=== PATIENT | female | born 1995 | race Caucasian/White ===

== ENCOUNTER 2016-07-03 09:26 | Emergency (ER) ==
[2016-07-03 09:34] VITALS: BP 120/80; TEMP 98; BMI 47.4
--- NOTE | 2016-07-03 10:07 | ED.PDOC ---
General ED Provider: Dr. TRINH PHAM JR Chief Complaint: Abdominal Pain Stated Complaint: LEFT LOWER ABDOMINAL PAIN SINCE SHE WOKE UP AND HAS ALSO BEEN HAVING DIARRHEA. HAD A POSITIVE TEST LAST WEEK AT [facility] BUT IS UNSURE OF HOW FAR ALONG SHE IS DUE TO IRREGULAR PERIODS[ End ]spotting in March Time Seen by Physician: 09:30 Mode of Arrival: Walk-In Information Source: Patient Exam Limitations: No limitations Nursing and Triage Documentation Reviewed and Agree: No Review of Systems - Review Of Systems Constitutional: Reports: No symptoms Eyes: Reports: No symptoms Ears, Nose, Mouth, Throat: Reports: No symptoms Respiratory: Reports: No symptoms Cardiac: Reports: No symptoms GI: Reports: Abdominal pain, Diarrhea, Nausea : Reports: No symptoms Musculoskeletal: Reports: No symptoms Skin: Reports: No symptoms Neurological: Reports: No symptoms Endocrine: Reports: No symptoms Hematologic/Lymphatic: Reports: No symptoms All Other Systems: Other Past Medical History - Past Medical History Previously Healthy: Yes Endocrine: Reports: None Cardiovascular: Reports: None Respiratory: Reports: None Hematological: Reports: None Gastrointestinal: Reports: None Genitourinary: Reports: None Neuro/Psych: Reports: None Musculoskeletal: Reports: None Cancer: Reports: None Last Menstrual Period: 03/28/16 - Surgical History General Surgical History: Reports: None, Unknown - Family History Family History: Reports: Unknown - Social History Smoking Status: Current some day smoker Hx Substance Use: No Alcohol Screening: None - Immunizations Tetanus Shot up to Date: Yes Physical Exam - Physical Exam Appearance: Well-appearing, Obese Pain Distress: Moderate Eyes: CELI, EOMI, Conjunctiva clear ENT: Ears normal, Nose normal, Oropharynx normal Neck: Supple Respiratory: Airway patent, Breath sounds clear, Breath sounds equal, Respirations nonlabored Cardiovascular: RRR, Pulses normal, No rub, No murmur GI/: Soft, Tender (LLQ and fundus not reproducible) Musculoskeletal: Normal strength, ROM intact, No edema, No calf tenderness Skin: Warm, Dry, Normal color Neurological: Sensation intact, Motor intact, Reflexes intact, Cranial nerves intact, Alert, Oriented Psychiatric: Affect appropriate, Mood appropriate Interpretation - Radiology Interpretation Radiology Interpretation By: Radiologist Radiology Results: Negative Exam Interpreted: Other (u/s [id number] 10/14/16) Critical Care Note - Critical Care Note Total Time (mins): 0 Course - Course Hematology/Chemistry: 07/03/16 10:10 07/03/16 10:10 Orders, Labs, Meds: Lab Review 07/03/16 07/03/16 10:10 10:19 WBC 16.16 H RBC 3.64 L Hgb 11.3 L Hct 31.8 L MCV 87.4 MCH 31.0 MCHC 35.5 H RDW Coeff of [place] 13.8 Plt Count 245 Immature Gran % (Auto) 0.6 Neut % (Auto) 80.7 Lymph % (Auto) 13.8 Ray % (Auto) 4.1 Eos % (Auto) 0.5 Baso % (Auto) 0.3 Immature Gran # (Auto) 0.1 Neut # 13.1 H Lymph # 2.2 Ray # 0.7 Eos # 0.1 Baso # 0.1 Sodium 135 L Potassium 3.6 Chloride 105 Carbon Dioxide 23 Anion Gap 10.6 BUN 7 Creatinine 0.57 L Estimated GFR (MDRD) 133.00 BUN/Creatinine Ratio 12.28 Glucose 87 Calcium 8.8 Total Bilirubin 0.43 AST 18 ALT 21 Alkaline Phosphatase 93 Total Protein 6.5 Albumin 2.7 L Globulin 3.8 Albumin/Globulin Ratio 0.71 Amylase 76 Lipase 10 Urine Color Yellow Urine Clarity Hazy Urine pH 6.0 Ur Specific [place] 1.025 Urine Protein Trace Urine Glucose (UA) Negative Urine Ketones Trace Urine Blood 1+ Urine Nitrite Negative Urine Bilirubin Negative Urine Urobilinogen 1.0 Ur Leukocyte Esterase Negative Urine Microscopic RBC 2-5 Urine Microscopic WBC 2-5 Ur Squamous Epith Cells 2-5 Amorphous Sediment Trace Urine Bacteria 1+ Urine Mucus Trace Orders Category Date Time Status AMYLASE Stat LAB 07/03/16 10:10 Completed CBC W/ AUTO DIFF Stat LAB 07/03/16 10:10 Completed COMPREHENSIVE METABOLIC PANEL Stat LAB 07/03/16 10:10 Completed LIPASE Stat LAB 07/03/16 10:10 Completed URINALYSIS C & S IF INDICATED Stat LAB 07/03/16 10:19 Completed URINE CULTURE Stat LAB 07/03/16 10:46 Received ULTRASOUND OB/TA LIMITED [U/S OB/TA LIMITED] Stat RADS 07/03/16 10:02 Completed Vital Signs: Temp Pulse Resp BP Pulse Ox 07/03/16 09:26 98 F 93 H 20 120/80 96 Departure - Departure Time of Disposition: 12:46 Disposition: HOME SELF-CARE Discharge Problem: Abdominal pain, Gastroenteritis, 25 weeks gestation of Instructions: (ED), Gastroenteritis (ED) Condition: Good Pt referred to PMD for follow-up: Yes Additional Instructions: DRAKE 10/14/2016 follow up with OBGYN may use Maalox for symptoms increase fluids to replace fluid losses avoid carbonated beverages recommend avoid tobacco smoke return if worsening pain if pain on urination if unable to keep fluids down if voiding less than 6 times per 24 hours Prescriptions: Pnv95/Ferrous Fumarate/FA [ Caplet] 1 each PO DAILY #100 tablet Allergies/Adverse Reactions: Allergies loratadine [From Claritin] Adverse Reaction (Verified 07/03/16 09:36) Home Medications: Ambulatory Orders Pnv95/Ferrous Fumarate/FA [ Caplet] 1 each PO DAILY #100 tablet
[2016-07-03 10:20] LABS: BASOPHILS # (AUTO) 0.1 K/uL (0-0.2); BASOPHILS % (AUTO) 0.3 % (0.0-3.0); EOSINOPHILS # (AUTO) 0.1 K/ul (0.0-0.7); PLATELET COUNT 245 10^3/uL (140-440)
[2016-07-03 10:44] LABS: BILIRUBIN,URINE NEGATIVE (NEGATIVE); KETONES,URINE TRACE (NEGATIVE); NITRITE,URINE NEGATIVE (NEGATIVE); PROTEIN,URINE TRACE (NEGATIVE); URINE, BLOOD 1+ (NEGATIVE)
[2016-07-03 10:45] LABS: ADD URINE MICROSCOPIC YES; BACTERIA,URINE 1+ (NOT PRESENT); LEUKOCYTE ESTERASE ,URINE NEGATIVE (NEGATIVE)
[2016-07-03 10:47] LABS: ALBUMIN 2.7 g/dL (3.4-5.0); ALBUMIN/GLOBULIN RATIO 0.71; ANION GAP 10.6; BILIRUBIN,TOTAL 0.43 mg/dL (0.00-1.20); BUN/CREATININE RATIO 12.28; CALCIUM 8.8 mg/dL (8.2-10.2); CREATININE 0.57 mg/dL (0.60-1.30); POTASSIUM 3.6 mmol/L (3.5-5.10); TOTAL PROTEIN 6.5 g/dL (6.4-8.2)
[2016-07-03 10:50] LABS: EOSINOPHILS % (AUTO) 0.5 % (0.0-7.0); HEMATOCRIT 31.8 % (37.0-47.0); HEMOGLOBIN 11.3 g/dl (12.0-16.0); IMMATURE GRANULOCYTE % (AUTO) 0.6 % (0.0-5.0); LYMPHOCYTES # (AUTO) 2.2 K/uL (0.60-3.4); LYMPHOCYTES % (AUTO) 13.8 (10.0-50.0); MEAN CORPUSCULAR HGB CONC 35.5 (31.8-35.4); MEAN CORPUSCULAR VOLUME 87.4 fl (81.0-99.0); MONOCYTES # (AUTO) 0.7 K/uL (0.4-2.0); MONOCYTES % (AUTO) 4.1 (0-10); NEUTROPHILS # (AUTO) 13.1 K/ul (2.0-6.9); NEUTROPHILS % (AUTO) 80.7; RED BLOOD COUNT 3.64 10^6/ul (4.20-5.40); WHITE BLOOD COUNT 16.16 K/ul (4.6-10.2)
--- NOTE | 2016-07-03 11:00 | US ---
EXAM: Obstetric ultrasound limited HISTORY: Left lower quadrant pain. COMPARISON: None. FINDINGS: A single intrauterine gestation is identified cephalic presentation. Heart rate 156 beat s per minute. Amniotic fluid index 18.7. The placenta is posterior without previa. Estimate gestational age 25 weeks 2 days with estimated date of delivery 10/14/2016. IMPRESSION: Single viable intrauterine gestation as described above.
== END 2016-07-03 13:14 | disposition home or self-care (01) ==
LOC: ED 09:26
DX: K52.9 Noninfective gastroenteritis and colitis, unspecified (principal); R10.32 Left lower quadrant pain; Z33.1 Pregnant state, incidental; F17.210 Nicotine dependence, cigarettes, uncomplicated
CPT/HCPCS: 36415; 80053; 81001; 82150; 83690; 85025; 87086; 99283

== ENCOUNTER 2016-08-17 07:29 | Outpatient (CLI) ==
[2016-08-17 08:49] LABS: GTT FASTING URINE NEGATIVE (NEGATIVE)
[2016-08-17 09:33] LABS: GLUCOSE,FASTING 84 mg/dL (70-121)
[2016-08-17 09:34] LABS: GLUCOSE 30 MINUTE 143 mg/dL (70-121); GLUCOSE 30 MINUTE URINE NEGATIVE (NEGATIVE)
[2016-08-17 10:11] LABS: GLUCOSE 2 HR URINE NEGATIVE (NEGATIVE)
[2016-08-17 11:11] LABS: GLUCOSE 3 HOUR URINE NEGATIVE (NEGATIVE)
== END 2016-08-17 07:30 | disposition home or self-care (01) ==
LOC: LAB 07:29
PROVIDERS: ATTEND Obstetrics & Gynecology
DX: O99.810 Abnormal glucose complicating pregnancy (principal)
CPT/HCPCS: 36415; 82951

== ENCOUNTER 2017-04-16 23:40 | Emergency (ER) ==
[2017-04-16 23:42] VITALS: BMI 45.8
[2017-04-16] MEDS ORDERED: PROTONIX IV IVP STA (23:52)
[2017-04-16] MEDS ORDERED: SODIUM CHLORIDE 1,000 ML IV STA (23:52)
[2017-04-16] MEDS ORDERED: DILAUDID 1 MG/ML SYRINGE IVP PRN (23:53)
[2017-04-16] MEDS ORDERED: ZOFRAN 4 MG/2 ML IVP STA (23:54)
[2017-04-17] MEDS ORDERED: DILAUDID 1 MG/ML SYRINGE IVP STA (00:06)
[2017-04-17 00:12] LABS: BASOPHILS # (AUTO) 0.1 K/uL (0-0.2); BASOPHILS % (AUTO) 0.4 % (0.0-3.0); EOSINOPHILS # (AUTO) 0.2 K/ul (0.0-0.7); EOSINOPHILS % (AUTO) 1.1 % (0.0-7.0); HEMATOCRIT 37.6 % (37.0-47.0); HEMOGLOBIN 12.4 g/dl (12.0-16.0); IMMATURE GRANULOCYTE % (AUTO) 0.6 % (0.0-5.0); LYMPHOCYTES # (AUTO) 5.6 K/uL (0.60-3.4); LYMPHOCYTES % (AUTO) 31.4 (10.0-50.0); MEAN CORPUSCULAR HEMOGLOBIN 26.6 pg (27.0-31.0); MEAN CORPUSCULAR VOLUME 80.5 fl (81.0-99.0); MONOCYTES # (AUTO) 0.8 K/uL (0.4-2.0); MONOCYTES % (AUTO) 4.3 (0-10); NEUTROPHILS % (AUTO) 62.2; PLATELET COUNT 295 10^3/uL (140-440); RED BLOOD COUNT 4.67 10^6/ul (4.20-5.40); WHITE BLOOD COUNT 17.72 K/ul (4.6-10.2)
[2017-04-17 00:28] LABS: SERUM PREGNANCY INTERNAL QC INTERNAL QC VALID
[2017-04-17 00:32] LABS: ALBUMIN 3.3 g/dL (3.4-5.0); ALBUMIN/GLOBULIN RATIO 0.94; ANION GAP 13.2; BILIRUBIN,TOTAL 0.25 mg/dL (0.00-1.20); BUN/CREATININE RATIO 19.73; CREATININE 0.76 mg/dL (0.60-1.30); POTASSIUM 3.2 mmol/L (3.5-5.10); TOTAL PROTEIN 6.8 g/dL (6.4-8.2)
--- NOTE | 2017-04-17 01:03 | CT ---
EXAM: CT of the abdomen and pelvis without contrast. HISTORY: Upper abdominal pain. PROCEDURE: Contiguous axial CT images of the abdomen and pelvis without contrast with coronal and sa gittal reformats. FINDINGS: There is minimal bibasilar dependent atelectasis. The liver, gallbladder, pancreas, spleen , adrenal glands and kidneys are normal in appearance. The abdominal aorta is normal in appearance. T he visualized loops of bowel and appendix are normal in appearance. No free fluid or free air in the abdomen or pelvis. The bladder is minimally filled with no abnormality identified. The uterus is unr emarkable. The bones and soft tissues are unremarkable. Impression: Negative CT of the abdomen and pelvis. Bibasilar dependent atelectasis.
[2017-04-17 01:12] VITALS: BP 134/82; TEMP 97.9
[2017-04-17 03:39] LABS: BILIRUBIN,URINE 1+ (NEGATIVE); KETONES,URINE Negative (NEGATIVE); LEUKOCYTE ESTERASE ,URINE Trace (NEGATIVE); NITRITE,URINE Negative (NEGATIVE); PROTEIN,URINE Negative (NEGATIVE); URINE, BLOOD Negative (NEGATIVE)
[2017-04-17 03:41] LABS: ADD URINE MICROSCOPIC YES
[2017-04-17 03:44] LABS: BACTERIA,URINE TRACE (NOT PRESENT)
--- NOTE | 2017-04-17 04:49 | ED.PDOC ---
General ED Provider: Dr. MARINA MOORE-ER Chief Complaint: Abdominal Pain Stated Complaint: im hurting and vomiting Time Seen by Physician: 23:45 Mode of Arrival: Walk-In Information Source: Patient Exam Limitations: No limitations [facility] Nursing and Triage Documentation Reviewed and Agree: Yes GI Complaint Exam - Abdominal Pain Complaint/Exam Onset: Gradual Duration: several hours Symptoms Are: Still present Timing: Constant Initial Severity: Mild Current Severity: Mild Location of Pain: Epigastric Radiates To: Reports: Back Character: Reports: Dull, Aching, Cramping Alleviating: Reports: Spontaneous resolution, Vomiting Associated Signs and Symptoms: Reports: Nausea, Vomiting. Denies: Diaphoresis, Fever, Cough, Chest pain, Dizziness, Back pain, Constipation, Blood in stool, Dysuria, Urinary frequency, Decreased urine output, Decreased appetite, Vaginal bleeding, Vaginal discharge, Diarrhea, Sore throat AAA Risk Factors: Reports: None Cardiac Risk Factors: Reports: None Ectopic Risk Factors: Reports: None Ovarian Torsion Risk Factors: Reports: Reproductive age Surgical Obstruction Risk Factors: Reports: None Patient Rh Status: Unknown Abdominal Findings: Present: None Differential Diagnoses: Constipation, Gastroenteritis, Pancreatitis, GB Review of Systems - Review Of Systems Constitutional: Reports: No symptoms Eyes: Reports: No symptoms Ears, Nose, Mouth, Throat: Reports: No symptoms Respiratory: Reports: No symptoms Cardiac: Reports: No symptoms GI: Reports: Abdominal pain, Nausea, Vomiting : Reports: No symptoms Musculoskeletal: Reports: No symptoms Skin: Reports: No symptoms Neurological: Reports: No symptoms Endocrine: Reports: No symptoms Hematologic/Lymphatic: Reports: No symptoms All Other Systems: Reviewed and Negative Past Medical History - Past Medical History Previously Healthy: Yes Endocrine: Reports: None Cardiovascular: Reports: None Respiratory: Reports: None Hematological: Reports: None Gastrointestinal: Reports: None Genitourinary: Reports: None Neuro/Psych: Reports: None Musculoskeletal: Reports: None Cancer: Reports: None Last Menstrual Period: LAST WEEK - Surgical History General Surgical History: Reports: None, Unknown - Family History Family History: Reports: Unknown - Social History Smoking Status: Current every day smoker, Heavy tobacco smoker Hx Substance Use: No Alcohol Screening: None Lives: With family - Immunizations Tetanus Shot up to Date: Yes Physical Exam - Physical Exam Appearance: Well-appearing Pain Distress: Mild Eyes: CELI, EOMI, Conjunctiva clear ENT: Ears normal, Nose normal, Oropharynx normal Neck: Supple Respiratory: Airway patent Cardiovascular: RRR, Pulses normal, No rub, No murmur GI/: Soft, Nontender, No masses, Bowel sounds normal, No Organomegaly Musculoskeletal: Normal strength Skin: Warm, Dry, Normal color Neurological: Sensation intact Psychiatric: Affect appropriate, Mood appropriate Interpretation - Radiology Interpretation Radiology Interpretation By: Radiologist Radiology Results: Negative Exam Interpreted: CT Scan Re-Evaluation - Re-Evaluation Time of Re-Evaluation: 04:49 Status: Improved Vital Signs Stable: Yes Pain Level: 0 Appearance: NAD Lungs: Clear Skin: Warm and Dry Neuro: Alert and Oriented X3 CV: RRR Critical Care Note - Critical Care Note Total Time (mins): 0 Course - Course Hematology/Chemistry: 04/16/17 00:10 04/16/17 00:10 Orders, Labs, Meds: Lab Review 04/16/17 04/16/17 04/16/17 00:10 00:10 00:10 WBC 17.72 H RBC 4.67 Hgb 12.4 Hct 37.6 MCV 80.5 L MCH 26.6 L MCHC 33.0 RDW Coeff of [place] 16.4 H Plt Count 295 Immature Gran % (Auto) 0.6 Neut % (Auto) 62.2 Lymph % (Auto) 31.4 [place] % (Auto) 4.3 Eos % (Auto) 1.1 Baso % (Auto) 0.4 Immature Gran # (Auto) 0.1 Neut # 11.0 H Lymph # 5.6 H [place] # 0.8 Eos # 0.2 Baso # 0.1 Sodium 142 Potassium 3.2 L Chloride 106 Carbon Dioxide 26 Anion Gap 13.2 BUN 15 Creatinine 0.76 Estimated GFR (MDRD) 94.00 BUN/Creatinine Ratio 19.73 Glucose 122 H Calcium 9.0 Total Bilirubin 0.25 AST 27 ALT 27 Alkaline Phosphatase 81 Total Protein 6.8 Albumin 3.3 L Globulin 3.5 Albumin/Globulin Ratio 0.94 Amylase 85 Lipase 10 Serum , Qual Negative Urine Color Urine Clarity Urine pH Ur Specific [place] Urine Protein Urine Glucose (UA) Urine Ketones Urine Blood Urine Nitrite Urine Bilirubin Urine Urobilinogen Ur Leukocyte Esterase Urine Microscopic WBC Ur Squamous Epith Cells Amorphous Sediment Urine Bacteria Urine Mucus 04/17/17 03:30 WBC RBC Hgb Hct MCV MCH MCHC RDW Coeff of [place] Plt Count Immature Gran % (Auto) Neut % (Auto) Lymph % (Auto) [place] % (Auto) Eos % (Auto) Baso % (Auto) Immature Gran # (Auto) Neut # Lymph # [place] # Eos # Baso # Sodium Potassium Chloride Carbon Dioxide Anion Gap BUN Creatinine Estimated GFR (MDRD) BUN/Creatinine Ratio Glucose Calcium Total Bilirubin AST ALT Alkaline Phosphatase Total Protein Albumin Globulin Albumin/Globulin Ratio Amylase Lipase Serum , Qual Urine Color Yellow Urine Clarity Slightly Urine pH 6.0 Ur Specific [place] 1.025 Urine Protein Negative Urine Glucose (UA) Negative Urine Ketones Negative Urine Blood Negative Urine Nitrite Negative Urine Bilirubin 1+ Urine Urobilinogen 1.0 Ur Leukocyte Esterase Trace Urine Microscopic WBC 2-5 Ur Squamous Epith Cells 5-10 Amorphous Sediment Trace Urine Bacteria Trace Urine Mucus 1+ Orders Category Date Time Status IV [ED IV/MEDIPORT/POWERPORT] .ONCE EMERGENCY 04/16/17 23:52 Active AMYLASE Stat LAB 04/16/17 00:10 Completed CBC W/ AUTO DIFF Stat LAB 04/16/17 00:10 Completed COMPREHENSIVE METABOLIC PANEL Stat LAB 04/16/17 00:10 Completed LIPASE Stat LAB 04/16/17 00:10 Completed SERUM Stat LAB 04/16/17 00:10 Completed URINALYSIS C & S IF INDICATED Stat LAB 04/17/17 03:30 Completed 0.9 % Sodium Chloride [Saline Flush] MEDS 04/16/17 23:52 Ordered 1 syr IVF PRN PRN Hydromorphone HCl [Dilaudid 1 mg/ml Syringe] MEDS 04/17/17 00:06 Discontinued 1 mg IVP ONCE STA Hydromorphone HCl [Dilaudid 1 mg/ml Syringe] MEDS 04/16/17 23:53 Ordered 1 mg IVP Q1HR PRN Ondansetron HCl/Pf [Zofran 4 mg/2 ml] MEDS 04/16/17 23:54 Discontinued 4 mg IVP ONCE STA Pantoprazole Sodium [Protonix IV] MEDS 04/16/17 23:52 Discontinued 40 mg IVP ONCE STA Sodium Chloride 0.9% [Sodium Chloride] 1,000 ml MEDS 04/16/17 23:52 Active IV 100 mls/hr CT ABDOMEN/PELVIS WO CONTRAST Stat RADS 04/17/17 00:32 Completed Medications Generic Name Dose Route Start Last Admin Trade Name Freq PRN Reason Stop Dose Admin Hydromorphone HCl 1 mg 04/16/17 23:53 04/17/17 01:11 Dilaudid 1 Mg/Ml Syringe IVP 1 mg Q1HR PRN Administration Abdominal Pain Sodium Chloride 1,000 mls @ 100 mls/hr 04/16/17 23:52 04/17/17 00:21 Sodium Chloride IV 04/17/17 09:51 100 mls/hr .Q10H STA Administration Sodium Chloride 1 syr 04/16/17 23:52 04/17/17 00:21 Saline Flush IVF 1 syr PRN PRN Administration To flush IV Discontinued Medications Generic Name Dose Route Start Last Admin Trade Name Dharmesh PRN Reason Stop Dose Admin Hydromorphone HCl 1 mg 04/17/17 00:06 04/17/17 00:20 Dilaudid 1 Mg/Ml Syringe IVP 04/17/17 00:07 1 mg ONCE STA Administration Ondansetron HCl 4 mg 04/16/17 23:54 04/17/17 00:21 Zofran 4 Mg/2 Ml IVP 04/16/17 23:55 4 mg ONCE STA Administration Pantoprazole Sodium 40 mg 04/16/17 23:52 04/17/17 00:21 Protonix Iv IVP 04/16/17 23:53 40 mg ONCE STA Administration Vital Signs: Temp Pulse Resp BP Pulse Ox 04/17/17 01:12 97.9 F 85 16 134/82 96 04/16/17 23:40 97.4 F L 103 H 24 145/88 H 97 Departure - Departure Time of Disposition: 04:49 Disposition: HOME SELF-CARE Discharge Problem: Abdominal pain Instructions: Abdominal Pain (ED) Condition: Good Pt referred to PMD for follow-up: Yes Additional Instructions: clear liquids--low fat diet--talk to your pcp about getting gb studies Allergies/Adverse Reactions: Allergies loratadine [From Claritin] Adverse Reaction (Verified 07/03/16 09:36) Home Medications: Ambulatory Orders 1 [No Reported Medications] 04/17/17 Disposition Discussed With: Patient
[2017-04-17] MEDS ORDERED: K-DUR PO STA (04:56)
== END 2017-04-17 05:39 | disposition home or self-care (01) ==
LOC: ED 23:40
DX: R10.13 Epigastric pain (principal); R11.2 Nausea with vomiting, unspecified; F17.210 Nicotine dependence, cigarettes, uncomplicated
CPT/HCPCS: 36415; 80053; 81001; 82150; 83690; 84703; 85025; 96361; 96374; 96375; 96376; 99283

== ENCOUNTER 2017-04-24 07:17 | Outpatient (CLI) ==
--- NOTE | 2017-04-24 08:41 | US ---
EXAM: Limited abdominal ultrasound. History: Abdominal pain. Comparison: CT abdomen pelvis 04/17/2017 Technique: Multiple sonographic images through the abdomen were obtained. Color duplex Doppler was used to interrogate vascular flow. Findings: The visualized pancreas demonstrates no gross abnormality. No abdominal ascites. The liver is not e nlarged. No focal liver lesions identified. There is antegrade flow within the main portal vein. L imited visualization of the right kidney demonstrates no evidence for hydronephrosis. Multiple galls tones. No gallbladder wall thickening. Common bile duct measures 0.5 cm in caliber. Impression: Cholelithiasis
== END 2017-04-24 07:18 | disposition home or self-care (01) ==
LOC: RAD 07:17
PROVIDERS: ATTEND Nurse Practitioner Family
DX: R10.9 Unspecified abdominal pain (principal); R11.0 Nausea

== ENCOUNTER 2017-05-23 18:09 | Emergency (ER) ==
[2017-05-23 18:23] VITALS: TEMP 100.9; BMI 44.3
[2017-05-23 19:10] VITALS: BP 126/87
--- NOTE | 2017-05-23 19:11 | ED.PDOC ---
General ED Provider: Dr. MARINA MOORE-ER Chief Complaint: Sore Throat Stated Complaint: albino had a sore throat, runny nose, cough and body aches Time Seen by Physician: 19:10 Mode of Arrival: Walk-In Information Source: Patient Exam Limitations: No limitations [facility] Nursing and Triage Documentation Reviewed and Agree: Yes Reviewed sepsis parameters & appropriate labs ordered?: Yes System Inflammatory Response Syndrome: Not Applicable Sepsis Protocol: For patient's 13 years and over: Temp is 96.8 and below OR 101 and greater Pulse >90 BPM Resp >20/minute Acutely Altered Mental Status Are patient's symptoms suggestive of a new infection, such as: -Pneumonia -Skin, Soft Tissue -Endocarditis -UTI -Bone, Joint Infection -Implantable Device -Acute Abdominal Infection -Wound Infection -Meningitis -Blood Stream Catheter Infection -Unknown EENT Complaint Exam - Throat Complaint/Exam Onset/Duration: 24 hrs Symptoms Are: Still present Timimg: Constant Initial Severity: Mild Current Severity: Mild Alleviating: Reports: Antipyretics Associated Signs and Symptoms: Reports: Fever, Cough, Nasal congestion, Vomiting. Denies: Dysphagia, Drooling, Foreign body sensation, Chills, Wheezing , Hoarseness, Sinus discomfort, Difficulty breathing, Lethargy, Irritability, Decreased activity, Diarrhea, Decreased hearing, Ear drainage Related History: Reports: Similar Episode Uvula Midline: Yes Caitlin-tonsillar Fluctuence: No Scarlatinaform Rash Present: No Stridor Present: No Sinus Tenderness Present: No Tonsillar Hypertrophy Present: No Tonsillar Exudate Present: No Caitlin-tonsillar Swelling Present: No Adenopathy Present: Yes Splenomegaly Present: No Differential Diagnoses: Influenza Review of Systems - Review Of Systems Constitutional: Reports: Chills, Fever, Weakness Eyes: Reports: No symptoms Ears, Nose, Mouth, Throat: Reports: Nose discharge, Throat pain Respiratory: Reports: Cough Cardiac: Reports: No symptoms GI: Reports: No symptoms : Reports: No symptoms Musculoskeletal: Reports: No symptoms Skin: Reports: No symptoms Neurological: Reports: No symptoms Endocrine: Reports: No symptoms Hematologic/Lymphatic: Reports: No symptoms All Other Systems: Reviewed and Negative Past Medical History - Past Medical History Previously Healthy: Yes Endocrine: Reports: None Cardiovascular: Reports: None Respiratory: Reports: None Hematological: Reports: None Gastrointestinal: Reports: None Genitourinary: Reports: None Neuro/Psych: Reports: None Musculoskeletal: Reports: None Cancer: Reports: None Last Menstrual Period: 2 days - Surgical History General Surgical History: Reports: None, Unknown - Family History Family History: Reports: Unknown - Social History Smoking Status: Current every day smoker, Heavy tobacco smoker Hx Substance Use: No Alcohol Screening: Occasionally Physical Exam - Physical Exam Appearance: Well-appearing, No pain distress, Well-nourished Eyes: CELI, EOMI ENT: Rhinorrhea, Erythema Neck: Supple Respiratory: Airway patent Cardiovascular: RRR GI/: Soft Musculoskeletal: Normal strength, ROM intact, No edema, No calf tenderness Skin: Warm Neurological: Sensation intact, Motor intact, Reflexes intact, Cranial nerves intact, Alert, Oriented Psychiatric: Affect appropriate, Mood appropriate Critical Care Note - Critical Care Note Total Time (mins): 0 Course - Course Orders, Labs, Meds: Orders Category Date Time Status FLU A & B RAPID TEST [MOLECULAR FLU A/B] Stat LAB 05/23/17 18:35 Ordered MOLECULAR GROUP A STREP Stat LAB 05/23/17 18:35 Ordered Vital Signs: Temp Pulse Resp BP Pulse Ox 05/23/17 18:10 100.9 F H 128 H 20 86/65 L 95 Departure - Departure Time of Disposition: 19:40 Disposition: HOME SELF-CARE Discharge Problem: Influenza A Otitis media Qualifiers: Otitis media type: suppurative Chronicity: acute Laterality: bilateral Recurrence: not specified as recurrent Spontaneous tympanic membrane rupture: without spontaneous rupture Qualified Code(s): H66.003 - Acute suppurative otitis media without spontaneous rupture of ear drum, bilateral Instructions: Ear Infection (ED) Condition: Good Pt referred to PMD for follow-up: Yes Additional Instructions: zpack--tylenol for fever or motrin==fluids--rest Allergies/Adverse Reactions: Allergies loratadine [From Claritin] Adverse Reaction (Verified 05/23/17 18:23) Home Medications: Ambulatory Orders 1 [No Reported Medications] 04/17/17 Disposition Discussed With: Patient
== END 2017-05-23 19:48 | disposition home or self-care (01) ==
LOC: ED 18:09
DX: J09.X2 Influenza due to identified novel influenza A virus with other respiratory manifestations (principal); H66.003 Acute suppurative otitis media without spontaneous rupture of ear drum, bilateral; F17.210 Nicotine dependence, cigarettes, uncomplicated
CPT/HCPCS: 87502; 87651; 99283

== ENCOUNTER 2017-07-27 12:53 | Emergency (ER) ==
[2017-07-27 13:00] VITALS: BP 106/75; TEMP 97.7; BMI 45.1
[2017-07-27] MEDS ORDERED: MOTRIN PO STA (13:09)
--- NOTE | 2017-07-27 13:59 | ED.PDOC ---
General ED Provider: Dr. SUMAN GOMEZ Chief Complaint: Foot Pain/Injury Stated Complaint: Patient is a 21 year old who statse that when she stood up to get off couch she stepped down of foot wrong and heard something popped since then she cannot tolerate bearing weight. Time Seen by Physician: 12:50 Mode of Arrival: Wheelchair Information Source: Patient [facility] and Triage Documentation Reviewed and Agree: Yes Reviewed sepsis parameters & appropriate labs ordered?: No System Inflammatory Response Syndrome: Pulse >90 BPM Sepsis Protocol: For patient's 13 years and over: Temp is 96.8 and below OR 101 and greater Pulse >90 BPM Resp >20/minute Acutely Altered Mental Status Are patient's symptoms suggestive of a new infection, such as: -Pneumonia -Skin, Soft Tissue -Endocarditis -UTI -Bone, Joint Infection -Implantable Device -Acute Abdominal Infection -Wound Infection -Meningitis -Blood Stream Catheter Infection -Unknown System Inflammatory Response Syndrome: Not Applicable Review of Systems - Review Of Systems Constitutional: Reports: No symptoms Eyes: Reports: No symptoms Ears, Nose, Mouth, Throat: Reports: No symptoms Respiratory: Reports: No symptoms Cardiac: Reports: No symptoms GI: Reports: No symptoms : Reports: No symptoms Musculoskeletal: Reports: Joint pain, Joint swelling Skin: Reports: No symptoms Neurological: Reports: No symptoms Endocrine: Reports: No symptoms Hematologic/Lymphatic: Reports: No symptoms All Other Systems: Reviewed and Negative Past Medical History - Past Medical History Previously Healthy: Yes Endocrine: Reports: None Cardiovascular: Reports: None Respiratory: Reports: None Hematological: Reports: None Gastrointestinal: Reports: None Genitourinary: Reports: None Neuro/Psych: Reports: None Musculoskeletal: Reports: None Cancer: Reports: None Last Menstrual Period: 06/27/17 - Surgical History General Surgical History: Reports: None, Unknown - Family History Family History: Reports: Unknown - Social History Smoking Status: Current every day smoker Hx Substance Use: Yes (marijuana) Alcohol Screening: Occasionally - Immunizations Tetanus Shot up to Date: Yes Physical Exam - Physical Exam Appearance: Obese Ill-appearing: Mild Pain Distress: Severe Respiratory: Airway patent Cardiovascular: Tachycardia Musculoskeletal: Limited ROM, Edema Psychiatric: Anxious Interpretation - Radiology Interpretation Radiology Interpretation By: ED Physician Radiology Results: Negative Exam Interpreted: Other (left foot and ankle. ) Critical Care Note - Critical Care Note Total Time (mins): 0 Course - Course Orders, Labs, Meds: Orders Category Date Time Status ED APPLY ICE AFFECTED AREA .ONCE EMERGENCY 07/27/17 13:09 Active Ibuprofen [Motrin] MEDS 07/27/17 13:09 Discontinued 800 mg PO ONCE STA ANKLE, LEFT MIN 3 VIEWS Stat RADS 07/27/17 13:07 Completed FOOT, LEFT 3 VIEWS Stat RADS 07/27/17 13:07 Completed Medications Discontinued Medications Generic Name Dose Route Start Last Admin Trade Name Dharmesh PRN Reason Stop Dose Admin Ibuprofen 800 mg 07/27/17 13:09 07/27/17 13:13 Motrin PO 07/27/17 13:10 800 mg ONCE STA Administration Vital Signs: Temp Pulse Resp BP Pulse Ox 07/27/17 12:54 97.7 F 124 H 16 106/75 97 Departure - Departure Time of Disposition: 13:59 Disposition: HOME SELF-CARE Discharge Problem: Sprain of foot, left Qualifiers: Encounter type: initial encounter Qualified Code(s): S93.602A - Unspecified sprain of left foot, initial encounter Instructions: Foot Sprain (ED) Condition: Stable Pt referred to PMD for follow-up: Yes IPMP verified?: No Additional Instructions: Keep foot elevated while in bed Use Crutches as needed for ambulation. Take medications as prescribed. Prescriptions: Ibuprofen [Motrin] 600 mg PO Q6H PRN #30 tablet PRN Reason: Analgesia Allergies/Adverse Reactions: Allergies loratadine [From Claritin] Adverse Reaction (Verified 07/27/17 13:04) Home Medications: Ambulatory Orders Citalopram Hydrobromide [Celexa] 10 mg PO DAILY 07/27/17 Ibuprofen [Motrin] 600 mg PO Q6H PRN #30 tablet 07/27/17 Trazodone HCl 50 mg PO BEDTIME 07/27/17 Disposition Discussed With: Patient, Family
--- NOTE | 2017-07-27 14:00 | DI ---
EXAM: Three views of the left foot HISTORY: Twisting injury. COMPARISON: Left ankle x-rays same day FINDINGS: There is no cortical irregularity or displaced fracture of the left foot identified. There are chronic changes at the base of the fifth metatarsal. There is no lytic or blastic lesion. The hind foot structures are unremarkable. The soft tissues are unremarkable with mild swelling. IMPRESSION: 1. No displaced fracture or dislocation of the left foot. 2. Mild soft tissue swelling.
--- NOTE | 2017-07-27 14:01 | DI ---
EXAM: Three views of the left ankle HISTORY: Twisting injury. COMPARISON: Same day left foot x-ray FINDINGS: There is no cortical irregularity or displaced fracture of the left ankle. There is no lyt ic or blastic lesion. Limited views of the structures in the hind foot are normal. Joint spaces yovanny ntained. The soft tissues are normal. IMPRESSION: No acute abnormality or displaced fracture of the left ankle.
== END 2017-07-27 14:30 | disposition home or self-care (01) ==
LOC: ED 12:53
DX: S93.602A Unspecified sprain of left foot, initial encounter (principal); X50.1XXA Overexertion from prolonged static or awkward postures, initial encounter; F17.210 Nicotine dependence, cigarettes, uncomplicated
CPT/HCPCS: 99282

== ENCOUNTER 2018-02-18 17:31 | Emergency (ER) ==
[2018-02-18 17:46] VITALS: BP 116/80; TEMP 99; BMI 48.2
--- NOTE | 2018-02-18 18:41 | ED.PDOC ---
General ED Provider: Dr. MARINA MOORE-ER Chief Complaint: Respiratory Complaint Stated Complaint: my ear hurts and i am congested Time Seen by Physician: 18:39 Mode of Arrival: Walk-In Information Source: Patient Exam Limitations: No limitations Primary Care Provider[facility] Nursing and Triage Documentation Reviewed and Agree: Yes Does patient meet sepsis criteria?: No System Inflammatory Response Syndrome: Not Applicable Sepsis Protocol: For patient's 13 years and over: Temp is 96.8 and below OR 101 and greater Pulse >90 BPM Resp >20/minute Acutely Altered Mental Status Are patient's symptoms suggestive of a new infection, such as: -Pneumonia -Skin, Soft Tissue -Endocarditis -UTI -Bone, Joint Infection -Implantable Device -Acute Abdominal Infection -Wound Infection -Meningitis -Blood Stream Catheter Infection -Unknown EENT Complaint Exam - Ear Complaint/Exam Onset/Duration: 2 days Symptoms Are: Still present Timing: Intermittent Initial Severity: Mild Current Severity: Mild Character: Reports: Dull pain Aggravating: Reports: None Alleviating: Reports: None Associated Signs and Symptoms: Reports: URI symptoms Vesicles to External Pinna: No Vesicles to Tragus: No TMJ Tenderness: None Mastoid Tenderness: None Tragal Tenderness: None External Canal: Normal Tympanic Membrane: Erythema, Dullness Differential Diagnoses: Otitis Media Review of Systems - Review Of Systems Constitutional: Reports: No symptoms Eyes: Reports: No symptoms Ears, Nose, Mouth, Throat: Reports: Ear pain, Nose discharge Respiratory: Reports: No symptoms Cardiac: Reports: No symptoms GI: Reports: No symptoms : Reports: No symptoms Musculoskeletal: Reports: No symptoms Skin: Reports: No symptoms Neurological: Reports: No symptoms Endocrine: Reports: No symptoms Hematologic/Lymphatic: Reports: No symptoms All Other Systems: Reviewed and Negative Past Medical History - Past Medical History Previously Healthy: Yes Endocrine: Reports: None Cardiovascular: Reports: None Respiratory: Reports: None Hematological: Reports: None Gastrointestinal: Reports: None Genitourinary: Reports: None Neuro/Psych: Reports: None Musculoskeletal: Reports: None Cancer: Reports: None Last Menstrual Period: last week - Surgical History General Surgical History: Reports: None, Unknown - Family History Family History: Reports: Unknown - Social History Smoking Status: Current every day smoker, Light tobacco smoker Hx Substance Use: Yes (marijuana) Alcohol Screening: Occasionally Physical Exam - Physical Exam Appearance: Well-appearing Pain Distress: Mild Eyes: CELI, EOMI ENT: Nose normal, Erythema Neck: Supple Respiratory: Airway patent, Breath sounds clear, Breath sounds equal, Respirations nonlabored Cardiovascular: RRR, Pulses normal, No rub, No murmur GI/: Soft Musculoskeletal: Normal strength, ROM intact, No edema, No calf tenderness Skin: Warm, Dry, Normal color Neurological: Sensation intact, Motor intact, Reflexes intact, Cranial nerves intact, Alert, Oriented Psychiatric: Affect appropriate, Mood appropriate Critical Care Note - Critical Care Note Total Time (mins): 0 Course - Course Vital Signs: Temp Pulse Resp BP Pulse Ox 02/18/18 17:33 99 F 89 16 116/80 98 Departure - Departure Time of Disposition: 18:40 Disposition: HOME SELF-CARE Discharge Problem: Otitis media Qualifiers: Otitis media type: suppurative Chronicity: acute Laterality: right Recurrence: not specified as recurrent Spontaneous tympanic membrane rupture: without spontaneous rupture Qualified Code(s): H66.001 - Acute suppurative otitis media without spontaneous rupture of ear drum, right ear Instructions: Ear Infection (ED) Condition: Good Pt referred to PMD for follow-up: Yes IPMP verified?: No Additional Instructions: augmentin 875mg bid x 10 days--tessalon perles 200mg tid prn cough 30--f/u pcp in a few days if not improving Allergies/Adverse Reactions: Allergies loratadine [From Claritin] Adverse Reaction (Verified 02/18/18 17:41) Home Medications: Ambulatory Orders Citalopram Hydrobromide [Celexa] 20 mg PO DAILY 12/03/17 Prazosin HCl [Minipress] 1 mg PO BEDTIME 02/18/18 Disposition Discussed With: Patient
== END 2018-02-18 18:45 | disposition home or self-care (01) ==
LOC: ED 17:31
DX: H66.001 Acute suppurative otitis media without spontaneous rupture of ear drum, right ear (principal); F17.210 Nicotine dependence, cigarettes, uncomplicated
CPT/HCPCS: 99282

== ENCOUNTER 2018-09-07 20:57 | Emergency (ER) ==
[2018-09-07 21:06] VITALS: BP 136/82; TEMP 99.2; BMI 52.5
[2018-09-07] MEDS ORDERED: TYLENOL PO STA (21:25)
[2018-09-07] MEDS ORDERED: ZOFRAN ODT PO STA (21:26)
--- NOTE | 2018-09-07 21:28 | ED.PDOC ---
General ED Provider: Dr. SUMAN GOMEZ Chief Complaint: Sore Throat Stated Complaint: Patient is a 22 year old female who comes to the ER with sore throat and bilateral ear pain with some nausea and vomiting x 3 that started this eveing Time Seen by Physician: 21:26 Mode of Arrival: Walk-In Information Source: Patient Primary Care Provider: RD VERDE Nursing and Triage Documentation Reviewed and Agree: Yes Does patient meet sepsis criteria?: No System Inflammatory Response Syndrome: Not Applicable Sepsis Protocol: For patient's 13 years and over: Temp is 96.8 and below OR 101 and greater Pulse >90 BPM Resp >20/minute Acutely Altered Mental Status Are patient's symptoms suggestive of a new infection, such as: -Pneumonia -Skin, Soft Tissue -Endocarditis -UTI -Bone, Joint Infection -Implantable Device -Acute Abdominal Infection -Wound Infection -Meningitis -Blood Stream Catheter Infection -Unknown EENT Complaint Exam - Throat Complaint/Exam Onset/Duration: 1900 Symptoms Are: Still present Timimg: Constant Initial Severity: Moderate Current Severity: Moderate Alleviating: Reports: None Associated Signs and Symptoms: Reports: Dysphagia (ear ache ) Related History: Reports: Similar Episode Uvula Midline: No Caitlin-tonsillar Fluctuence: No Scarlatinaform Rash Present: No Stridor Present: No Sinus Tenderness Present: Yes Tonsillar Hypertrophy Present: Yes Tonsillar Exudate Present: No Adenopathy Present: No Splenomegaly Present: No Differential Diagnoses: Pharyngitis Review of Systems - Review Of Systems Constitutional: Reports: No symptoms Eyes: Reports: No symptoms Ears, Nose, Mouth, Throat: Reports: Ear pain, Throat pain Respiratory: Reports: No symptoms Cardiac: Reports: No symptoms GI: Reports: Nausea, Vomiting : Reports: No symptoms Musculoskeletal: Reports: No symptoms Skin: Reports: No symptoms Neurological: Reports: No symptoms Endocrine: Reports: No symptoms Hematologic/Lymphatic: Reports: No symptoms All Other Systems: Reviewed and Negative Past Medical History - Past Medical History Previously Healthy: Yes Endocrine: Reports: None Cardiovascular: Reports: None Respiratory: Reports: None Hematological: Reports: None Gastrointestinal: Reports: None Genitourinary: Reports: None Neuro/Psych: Reports: None Musculoskeletal: Reports: None Cancer: Reports: None Last Menstrual Period: 07/25/18 - Surgical History General Surgical History: Reports: None, Unknown - Family History Family History: Reports: Unknown - Social History Smoking Status: Current every day smoker, Light tobacco smoker Hx Substance Use: Yes (marijuana occasionally) Alcohol Screening: None - Immunizations Tetanus Shot up to Date: Yes Physical Exam - Physical Exam Appearance: Obese Ill-appearing: Mild Pain Distress: Moderate Eyes: CELI, EOMI, Conjunctiva clear ENT: Ears normal, Erythema Neck: Supple Respiratory: Airway patent, Breath sounds clear, Breath sounds equal, Respirations nonlabored Cardiovascular: RRR, Pulses normal, No rub, No murmur GI/: Soft, Nontender, No masses, Bowel sounds normal, No Organomegaly Musculoskeletal: Normal strength, ROM intact, No edema, No calf tenderness Skin: Warm Neurological: Sensation intact, Motor intact, Cranial nerves intact, Alert, Oriented Psychiatric: Anxious Critical Care Note - Critical Care Note Total Time (mins): 0 Course - Course Orders, Labs, Meds: Orders Category Date Time Status RAPID STREP SCREEN [MOLECULAR GROUP A STREP] Stat LAB 09/07/18 21:17 Uncollected Acetaminophen [Tylenol] MEDS 09/07/18 21:25 Stat 1,000 mg PO ONCE STA Vital Signs: Temp Pulse Resp BP Pulse Ox 09/07/18 20:59 99.2 F 104 H 20 136/82 97 Departure - Departure Time of Disposition: 21:35 Disposition: HOME SELF-CARE Discharge Problem: Sore throat symptom Nausea & vomiting Qualifiers: Vomiting type: unspecified Vomiting Intractability: non-intractable Qualified Code(s): R11.2 - Nausea with vomiting, unspecified Instructions: Strep Throat (ED) Condition: Stable Pt referred to PMD for follow-up: Yes IPMP verified?: No Additional Instructions: Take medications as prescribed followup with PCP in 3 days Prescriptions: Ibuprofen [Motrin] 600 mg PO Q6H PRN #30 tablet PRN Reason: Analgesia Ondansetron [Zofran Odt] 4 mg PO Q8H #12 tab.rapdis Allergies/Adverse Reactions: Allergies loratadine [From Claritin] Adverse Reaction (Verified 09/07/18 21:09) Difficulty Swallowing Home Medications: Ambulatory Orders Ibuprofen [Motrin] 600 mg PO Q6H PRN #30 tablet 09/07/18 Ondansetron [Zofran Odt] 4 mg PO Q8H #12 tab.rapdis 09/07/18 Disposition Discussed With: Patient, Family
== END 2018-09-07 21:36 | disposition home or self-care (01) ==
LOC: ED 20:57
DX: J02.9 Acute pharyngitis, unspecified (principal); H92.03 Otalgia, bilateral; R11.2 Nausea with vomiting, unspecified; R13.10 Dysphagia, unspecified; Z72.0 Tobacco use
CPT/HCPCS: 87651; 99283

== ENCOUNTER 2018-10-09 15:26 | Emergency (ER) ==
[2018-10-09 15:36] VITALS: BP 138/96; TEMP 99.1; BMI 50.5
--- NOTE | 2018-10-09 16:08 | ED.PDOC ---
General ED Provider: Dr. MARINA MARIE Chief Complaint: Foot Pain/Injury Stated Complaint: Twisted Rt Foot. 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 Noted rt foot becoming sore and uncomfortable to walk. No swelling, deformity or discoloration Time Seen by Physician: 15:00 Mode of Arrival: Walk-In Information Source: Patient Exam Limitations: No limitations Primary Care Provider: RD VERDE Nursing and Triage Documentation Reviewed and Agree: Yes Does patient meet sepsis criteria?: No If yes, has appropriate treatment been initiated?: No Sepsis Protocol: For patient's 13 years and over: Temp is 96.8 and below OR 101 and greater Pulse >90 BPM Resp >20/minute Acutely Altered Mental Status Are patient's symptoms suggestive of a new infection, such as: -Pneumonia -Skin, Soft Tissue -Endocarditis -UTI -Bone, Joint Infection -Implantable Device -Acute Abdominal Infection -Wound Infection -Meningitis -Blood Stream Catheter Infection -Unknown Musculoskeletal Complaint Exam - Ankle/Foot Complaint/Exam Location of Injury: Reports: Right, Foot Past Medical History - Past Medical History Previously Healthy: Yes Endocrine: Reports: None Cardiovascular: Reports: None Respiratory: Reports: None Hematological: Reports: None Gastrointestinal: Reports: None Genitourinary: Reports: None Neuro/Psych: Reports: None Musculoskeletal: Reports: None Cancer: Reports: None Last Menstrual Period: 10/04/18 - Surgical History General Surgical History: Reports: None, Unknown - Family History Family History: Reports: Unknown - Social History Smoking Status: Current every day smoker, Light tobacco smoker Hx Substance Use: Yes (marijuana occasionally) Alcohol Screening: None Course - Course Orders, Labs, Meds: Orders Category Date Time Status FOOT, RIGHT 3 VIEWS Stat RADS 10/09/18 16:04 Completed Vital Signs: Temp Pulse Resp BP Pulse Ox 10/09/18 15:28 99.1 F 110 H 20 138/96 H 94 L Departure - Departure Disposition: HOME SELF-CARE Discharge Problem: Right foot strain Instructions: Ankle Strain (ED) Condition: Good Pt referred to PMD for follow-up: Yes (1 wk) IPMP verified?: No Additional Instructions: Manny wrap Elevate Ice frequently Advil for pain as needed Allergies/Adverse Reactions: Allergies loratadine [From Claritin] Adverse Reaction (Verified 09/07/18 21:09) Difficulty Swallowing Home Medications: Ambulatory Orders 1 [No Reported Medications] 10/09/18 Disposition Discussed With: Patient
--- NOTE | 2018-10-09 16:44 | DI ---
EXAM: RIGHT FOOT, 3 VIEWS HISTORY: Dorsal foot pain FINDINGS: Bone and joint structures appear normal. No displaced fracture or joint dislocation is s een. There is no joint effusion. Soft tissues within normal limits. IMPRESSION: Within normal limits.
== END 2018-10-09 17:03 | disposition home or self-care (01) ==
LOC: ED 15:26
DX: M25.571 Pain in right ankle and joints of right foot (principal); S96.911A Strain of unspecified muscle and tendon at ankle and foot level, right foot, initial encounter
CPT/HCPCS: 99282

== ENCOUNTER 2018-10-25 16:09 | Emergency (ER) ==
[2018-10-25 16:15] VITALS: TEMP 99.5; BMI 50.1
[2018-10-25 16:40] LABS: URINE PREGNANCY TEST NEGATIVE (NEGATIVE)
[2018-10-25 17:48] VITALS: BP 133/66
--- NOTE | 2018-10-25 18:04 | ED.PDOC ---
General Stated Complaint: chest pain radiating to the back Time Seen by Physician: 16:19 (negative trauma) Mode of Arrival: Walk-In Information Source: Patient Exam Limitations: No limitations Referred to ED by: Other (seen with cam at all times ) Nursing and Triage Documentation Reviewed and Agree: Yes Does patient meet sepsis criteria?: No System Inflammatory Response Syndrome: Not Applicable <JOSE GRIMALDO - Last Filed: 10/25/18 18:34> <SHOAIB MILLER - Last Filed: 10/25/18 20:52> ED Provider: Dr. SHOAIB MILLER Chief Complaint: Back Pain Primary Care Provider: RD VERDE Sepsis Protocol: For patient's 13 years and over: Temp is 96.8 and below OR 101 and greater Pulse >90 BPM Resp >20/minute Acutely Altered Mental Status Are patient's symptoms suggestive of a new infection, such as: -Pneumonia -Skin, Soft Tissue -Endocarditis -UTI -Bone, Joint Infection -Implantable Device -Acute Abdominal Infection -Wound Infection -Meningitis -Blood Stream Catheter Infection -Unknown Cardiovascular Complaint Exam - Chest Pain Complaint/Exam Duration: this morning 6 am Symptoms Are: Still present Timing: Intermittent Length of Chest Pain Episodes: 10 min Initial Severity: Moderate Current Severity: Mild Location: Reports: Discrete Pain Radiates: Reports: Back (left lateral chest), Left shoulder Character: Reports: Dull, Aching Aggravating: Reports: None Alleviating: Reports: None Associated Signs and Symptoms: Denies: Diaphoresis, Nausea, Vomiting, Fever, Palpitations, Cough, Hemoptysis, Back pain, Abdominal pain, Dizziness, Short of air, Calf pain, Calf swelling Related Surgical History: Reports: None History of Healthcare-Acquired Pneumonia: Reports: No AMI/ACS Risk Factors: Reports: None TAD Risk Factors: Reports: None Pulmonary Embolism Risk Factors: Reports: None Prior Care for this Complaint: No Recent Stress Test: No Recent Echo/LV Function: No JVD Present: No Subcutaneous Emphysema Present: No Diminshed Breath Sounds: No Reproducible Chest Wall Pain: No Bilateral Pulses Present: No Unequal Pulses Noted: No If Risk Factors for AMI/ACS Consider: EKG Resolution Analyst Consulted: No Differential Diagnoses: Stable Angina, Chest Wall Pain, GI Diseasae, Lower Resp. Infection Quality Indicators For Acute VT or Cardiac Chest Pain: EKG in 10min. Quality Indicator For Non-Traumatic Chest Pain/Syncope: EKG Performed <JOSE GRIMALDO Filed: 10/25/18 18:34> Review of Systems - Review Of Systems Constitutional: Reports: No symptoms Eyes: Reports: No symptoms Ears, Nose, Mouth, Throat: Reports: No symptoms Respiratory: Reports: No symptoms Cardiac: Reports: Chest pain GI: Reports: No symptoms : Reports: No symptoms Musculoskeletal: Reports: No symptoms Skin: Reports: No symptoms Neurological: Reports: No symptoms Endocrine: Reports: No symptoms Hematologic/Lymphatic: Reports: No symptoms All Other Systems: Reviewed and Negative <JOSE GRIMALDO Last Filed: 10/25/18 18:34> Past Medical History - Past Medical History Previously Healthy: Yes Endocrine: Reports: None Cardiovascular: Reports: None Respiratory: Reports: None Hematological: Reports: None Gastrointestinal: Reports: None Genitourinary: Reports: None Neuro/Psych: Reports: None Musculoskeletal: Reports: None Cancer: Reports: None Last Menstrual Period: 09/2018 - Surgical History General Surgical History: Reports: None, Unknown - Family History Family History: Reports: Unknown - Social History Smoking Status: Current some day smoker, Light tobacco smoker Hx Substance Use: Yes (2 months) Alcohol Screening: None - Immunizations Tetanus Shot up to Date: Yes <JOSE GRIMALDO Filed: 10/25/18 18:34> Physical Exam - Physical Exam Appearance: Well-appearing Eyes: CELI, EOMI, Conjunctiva clear ENT: Ears normal, Nose normal, Oropharynx normal Respiratory: Airway patent, Breath sounds clear, Breath sounds equal, Respirations nonlabored Cardiovascular: RRR, Pulses normal, No rub, No murmur GI/: Soft, Nontender, No masses, Bowel sounds normal, No Organomegaly Musculoskeletal: Normal strength, ROM intact, No edema, No calf tenderness Skin: Warm, Dry, Normal color Neurological: Sensation intact, Motor intact, Reflexes intact, Cranial nerves intact, Alert, Oriented Psychiatric: Affect appropriate, Mood appropriate <JOSE GRIMALDO Last Filed: 10/25/18 18:34> Interpretation - Parole Officer Rate: Normal Rhythm: Sinus Ectopy: None - EKG Interpretation Rate: Normal Rhythm: Sinus Ectopy: None [place]: NL ST Segment: Normal <JOSE GRIMALDO Filed: 10/25/18 18:34> Physician Notification - Case Discussed Physician Notified: miranda Time of Notification: 19:00 <DILLANJOSE - Last Filed: 10/25/18 18:34> Critical Care Note - Critical Care Note Total Time (mins): 0 <JOSE GRIMALDO - Last Filed: 10/25/18 18:34> Course - Course Hematology/Chemistry: 10/25/18 17:53 10/25/18 17:53 <JOSE GRIMALDO - Last Filed: 10/25/18 18:34> - Course Hematology/Chemistry: 10/25/18 17:53 10/25/18 17:53 <SHOAIB MILLER - Last Filed: 10/25/18 20:52> - Course Orders, Labs, Meds: Lab Review 10/25/18 10/25/18 10/25/18 16:20 16:20 17:53 WBC 14.77 H RBC 4.66 Hgb 13.3 Hct 40.4 MCV 86.7 MCH 28.5 MCHC 32.9 RDW Coeff of [place] 13.5 Plt Count 285 Immature Gran % (Auto) 0.3 Neut % (Auto) 76.5 Lymph % (Auto) 16.7 [place] % (Auto) 5.1 Eos % (Auto) 1.0 Baso % (Auto) 0.4 Immature Gran # (Auto) 0.1 Neut # (Auto) 11.3 H Lymph # (Auto) 2.5 [place] # (Auto) 0.8 Eos # (Auto) 0.2 Baso # (Auto) 0.1 D-Dimer (Manual) Sodium Potassium Chloride Carbon Dioxide Anion Gap BUN Creatinine Estimated GFR (MDRD) BUN/Creatinine Ratio Glucose Calcium Total Bilirubin AST ALT Alkaline Phosphatase Total Creatine Kinase Troponin I Total Protein Albumin Globulin Albumin/Globulin Ratio Urine Color Yellow Urine Clarity Clear Urine pH 5.5 Ur Specific [place] >=1.030 Urine Protein Negative Urine Glucose (UA) Negative Urine Ketones Negative Urine Blood Negative Urine Nitrite Negative Urine Bilirubin Negative Urine Urobilinogen 0.2 Ur Leukocyte Esterase Negative Urine Test Negative 10/25/18 10/25/18 17:53 17:53 WBC RBC Hgb Hct MCV MCH MCHC RDW Coeff of [place] Plt Count Immature Gran % (Auto) Neut % (Auto) Lymph % (Auto) [place] % (Auto) Eos % (Auto) Baso % (Auto) Immature Gran # (Auto) Neut # (Auto) Lymph # (Auto) [place] # (Auto) Eos # (Auto) Baso # (Auto) D-Dimer (Manual) 325.48 Sodium 136.3 Potassium 4.05 Chloride 104.9 Carbon Dioxide 25.7 Anion Gap 9.75 BUN 11.5 Creatinine 0.54 L Estimated GFR (MDRD) 138.00 BUN/Creatinine Ratio 21.29 Glucose 90.3 Calcium 8.64 Total Bilirubin 0.55 AST 28.1 ALT 23.8 Alkaline Phosphatase 69.2 Total Creatine Kinase 46.1 Troponin I < 0.012 Total Protein 6.91 Albumin 3.92 Globulin 2.99 Albumin/Globulin Ratio 1.31 Urine Color Urine Clarity Urine pH Ur Specific [place] Urine Protein Urine Glucose (UA) Urine Ketones Urine Blood Urine Nitrite Urine Bilirubin Urine Urobilinogen Ur Leukocyte Esterase Urine Test Orders Category Date Time Status EKG-(ED ONLY) Stat CARDIO 10/25/18 17:33 Completed NPO REMINDER: IMAGING ONCE CARE 10/25/18 19:58 Active ED IV/MEDIPORT/POWERPORT .ONCE EMERGENCY 10/25/18 18:08 Active CBC W/ AUTO DIFF Stat LAB 10/25/18 17:53 Completed COMPREHENSIVE METABOLIC PANEL Stat LAB 10/25/18 17:53 Completed CREATINE KINASE Stat LAB 10/25/18 17:53 Completed D-DIMER Stat LAB 10/25/18 17:53 Completed TROPONIN I Stat LAB 10/25/18 17:53 Completed URINALYSIS C & S IF INDICATED Stat LAB 10/25/18 16:20 Completed URINE Stat LAB 10/25/18 16:20 Completed 0.9 % Sodium Chloride [Saline Flush] MEDS 10/25/18 18:08 Ordered 1 syr IVF PRN PRN Sodium Chloride 0.9% [Sodium Chloride] 1,000 ml MEDS 10/25/18 18:33 Active IV 125 mls/hr Sodium Chloride 0.9% [Sodium Chloride] 1,000 ml MEDS 10/25/18 18:[address] CHEST W/CONTRAST Stat RADS 10/25/18 19:[address] CHEST W/O CONTRAST Stat RADS 10/25/18 17:[address] THORACIC SPINE W/O CONTRAST Stat RADS 10/25/18 17:34 Completed Medications Generic Name Dose Route Start Last Admin Trade Name Freq PRN Reason Stop Dose Admin Sodium Chloride 1,000 mls @ 125 mls/hr 10/25/18 18:33 Sodium Chloride IV 10/26/18 02:32 .Q8H STA Sodium Chloride 1 syr 10/25/18 18:08 Saline Flush IVF PRN PRN To flush IV Discontinued Medications Generic Name Dose Route Start Last Admin Trade Name Dharmesh PRN Reason Stop Dose Admin Sodium Chloride 1,000 mls @ 1,000 mls/hr 10/25/18 18:09 10/25/18 18:22 Sodium Chloride IV 10/25/18 19:08 1,000 mls/hr BOLUS STA Administration Vital Signs: Temp Pulse Resp BP Pulse Ox 10/25/18 17:47 133/66 10/25/18 16:10 99.5 F 109 H 16 126/86 97 VÍCTOR Risk Score: Risk Score Odds of by 30D 0 0.1 (0.1-0.2) 1 0.3 (0.2-0.3) 2 0.4 (0.3-0.5) 3 0.7 (0.6-0.9) 4 1.2 (1.0-1.5) 5 2.2 (1.9-2.6) 6 3.0 (2.5-3.6) 7 4.8 (3.8-6.1) Departure - Departure Pt referred to PMD for follow-up: Yes IPMP verified?: No Disposition Discussed With: Patient <JOSE GRIMALDO - Last Filed: 10/25/18 18:34> - Departure Time of Disposition: 20:51 <SHAOIB MILLER - Last Filed: 10/25/18 20:52> - Departure Disposition: HOME SELF-CARE Discharge Problem: Chest pain Qualifiers: Chest pain type: unspecified Qualified Code(s): R07.9 - Chest pain, unspecified Instructions: Chest Pain (ED) Condition: Good Additional Instructions: Please call your Family Physician as soon as possible to schedule a follow-up appointment. Allergies/Adverse Reactions: Allergies loratadine [From Claritin] Adverse Reaction (Verified 10/25/18 16:17) Difficulty Swallowing Home Medications: Ambulatory Orders 1 [No Reported Medications] 10/09/18
--- NOTE | 2018-10-25 18:07 | CT ---
EXAM: CT chest without contrast HISTORY: Chest pain most pronounced on the left side extending to the back COMPARISON: CT thoracic spine same day TECHNIQUE: Serial axial images of the chest were obtained from the lung apices to the upper abdomen without contrast. These were viewed in multiple planes. FINDINGS: The thyroid is normal. The visualized vessels are unremarkable without aneurysm or stenos is. The heart is normal in size without pericardial effusion. There are multiple nonpathologically enlarged mediastinal or hilar lymph nodes. There is no pneumothorax or effusion. There is right basilar atelectasis. There is no consolidation , nodule or mass. The airways are patent. The osseous structures are unremarkable. Limited views of the soft tissues in the upper abdomen demo nstrate prior cholecystectomy. IMPRESSION: 1. No acute cardiopulmonary process to account for patient's symptoms. 2. Mild right basilar atelectasis.
--- NOTE | 2018-10-25 18:08 | CT ---
EXAM: CT of the thoracic spine without contrast. HISTORY: Pain. PROCEDURE: Contiguous axial CT images of the thoracic spine without contrast with multiplanar reform ats. FINDINGS: There is normal alignment of the thoracic vertebral bodies and facets. The vertebral body heights and intervertebral disc spaces are maintained. No evidence of fracture. No paravertebral s oft tissue abnormality. Impression: Negative thoracic spine.
[2018-10-25] MEDS ORDERED: SODIUM CHLORIDE 1,000 ML IV STA ×2 (18:09→18:33)
--- NOTE | 2018-10-25 20:28 | CT ---
Exam: CT scan of the thorax with IV contrast. Date: 10/25/2018. Comparison: 10/25/2018. HISTORY: Chest pain. TECHNIQUE: Helical scan of the thorax was performed following intravenous contrast. FINDINGS: The thoracic inlet and axillary regions are normal. There are subcentimeter mediastinal l ymph nodes. Caliber of the thoracic aorta cardiac chambers are normal. The spleen and liver have a uniform enhancement. A cholecystectomy is noted. The stomach, pancreas and adrenal glands are kelly l. No acute osseous abnormalities are seen. Evaluation at lung window settings does not demonstrate any suspicious pulmonary nodules, pleural flu id or consolidation. The tracheobronchial tree is patent. Impression: No acute intrathoracic findings.
== END 2018-10-25 20:59 | disposition home or self-care (01) ==
LOC: ED 16:09
DX: R07.9 Chest pain, unspecified (principal); M54.9 Dorsalgia, unspecified; F17.210 Nicotine dependence, cigarettes, uncomplicated
CPT/HCPCS: 36415; 80053; 81001; 81025; 82550; 84484; 85025; 85379; 93005; 93010; 96360; 99283

== ENCOUNTER 2018-11-15 22:21 | Emergency (ER) ==
[2018-11-15 22:30] VITALS: BP 143/81; TEMP 99.5; BMI 51.1
[2018-11-15] MEDS ORDERED: TORADOL IM STA (22:43)
[2018-11-15] MEDS ORDERED: KEFLEX PO STA ×2 (22:43→22:49)
--- NOTE | 2018-11-15 22:46 | ED.PDOC ---
General ED Provider: Dr. SUMAN GOMEZ Chief Complaint: Breast Pain Stated Complaint: Patient states that she has had aright superfical breast ulcer for one month. It has been draining lot lately and is very painful. she has been putting a gauze dressing which gets stuck. Time Seen by Physician: 22:30 Mode of Arrival: Walk-In Information Source: Patient Exam Limitations: No limitations Primary Care Provider: RD VREDE Nursing and Triage Documentation Reviewed and Agree: Yes Does patient meet sepsis criteria?: No System Inflammatory Response Syndrome: Not Applicable Sepsis Protocol: For patient's 13 years and over: Temp is 96.8 and below OR 101 and greater Pulse >90 BPM Resp >20/minute Acutely Altered Mental Status Are patient's symptoms suggestive of a new infection, such as: -Pneumonia -Skin, Soft Tissue -Endocarditis -UTI -Bone, Joint Infection -Implantable Device -Acute Abdominal Infection -Wound Infection -Meningitis -Blood Stream Catheter Infection -Unknown Skin Complaint Exam - Skin/Soft Tissue Complaint/Exam Onset/Duration: 1 month Symptoms Are: Still present Timing: Constant Initial Severity: Moderate Current Severity: Severe Location: right breast 4 o'clock position Character: Reports: Redness, Painful Aggravating: Reports: Touch Alleviating: Reports: None Associated Signs and Symptoms: Reports: Drainage, Tenderness Related History: Denies: Recent trauma, Foreign body, Insect bite/sting, Prior MRSA/VRE Skin Findings: Present: Skin lesion, Wet ulceration Joint Tenderness Present: No Differential Diagnoses: Abscess, Cellulitis Review of Systems - Review Of Systems Constitutional: Reports: No symptoms Eyes: Reports: No symptoms Ears, Nose, Mouth, Throat: Reports: No symptoms Respiratory: Reports: No symptoms Cardiac: Reports: No symptoms GI: Reports: No symptoms : Reports: No symptoms Musculoskeletal: Reports: No symptoms Skin: Reports: Lesions Neurological: Reports: Anxiety Endocrine: Reports: No symptoms Hematologic/Lymphatic: Reports: No symptoms All Other Systems: Reviewed and Negative Past Medical History - Past Medical History Previously Healthy: Yes Endocrine: Reports: None Cardiovascular: Reports: None Respiratory: Reports: None Hematological: Reports: None Gastrointestinal: Reports: None Genitourinary: Reports: None Neuro/Psych: Reports: Anxiety, Depression Musculoskeletal: Reports: None Cancer: Reports: None Last Menstrual Period: 10/20/18 Other Pertinent Past Medical History: Obesity - Surgical History General Surgical History: Reports: Unknown - Family History Family History: Reports: Unknown - Social History Smoking Status: Current some day smoker, Light tobacco smoker Hx Substance Use: Yes (marijuana for anxiety occasionally) Alcohol Screening: None - Immunizations Tetanus Shot up to Date: Yes Physical Exam - Physical Exam Appearance: Obese Pain Distress: Severe Neck: Supple Respiratory: Airway patent Cardiovascular: RRR, Pulses normal, No rub, No murmur Skin: Warm, Dry Critical Care Note - Critical Care Note Total Time (mins): 0 Course - Course Orders, Labs, Meds: Orders Category Date Time Status Cephalexin [Keflex] MEDS 11/15/18 22:49 Discontinued 500 mg PO ONCE STA Ed After Hour Supply Med [Ed After Hours Supply Med MEDS 11/15/18 22:54 Discontinued Sent Home] 1 each PO ONCE ONE Hydrocodone Bit/Acetaminophen [[place] 5-325] MEDS 11/15/18 23:14 Discontinued 4 tab .ROUTE .STK-MED ONE Ketorolac Tromethamine [Toradol] MEDS 11/15/18 22:43 Discontinued 60 mg IM ONCE STA Medications Discontinued Medications Generic Name Dose Route Start Last Admin Trade Name Freq PRN Reason Stop Dose Admin Cephalexin 500 mg 11/15/18 22:49 11/15/18 22:53 Keflex PO 11/15/18 22:50 500 mg ONCE STA Administration Ketorolac Tromethamine 60 mg 11/15/18 22:43 11/15/18 22:52 Toradol IM 11/15/18 22:44 60 mg ONCE STA Administration Miscellaneous Information 1 each 11/15/18 22:54 11/15/18 23:28 Ed After Hours Supply Med Sent Home PO 11/15/18 22:55 Not Given ONCE ONE Protocol Vital Signs: Temp Pulse Resp BP Pulse Ox 11/15/18 22:22 99.5 F 98 H 20 143/81 H 97 Departure - Departure Time of Disposition: 23:30 Disposition: HOME SELF-CARE Discharge Problem: Skin ulcer of female breast Instructions: Acute Wounds (ED) Condition: Good Pt referred to PMD for follow-up: Yes IPMP verified?: No Additional Instructions: change dressing twice a day Follow up with OBGYN in 3 days Prescriptions: Hydrocodone Bit/Acetaminophen [[place] 5-325] 1 each PO Q6HR PRN #15 tablet PRN Reason: severe pain Cephalexin [Keflex] 500 mg PO Q8HR #30 capsule Allergies/Adverse Reactions: Allergies loratadine [From Claritin] Adverse Reaction (Verified 11/15/18 22:30) Difficulty Swallowing Home Medications: Ambulatory Orders Cephalexin [Keflex] 500 mg PO Q8HR #30 capsule 11/15/18 Hydrocodone Bit/Acetaminophen [[place] 5-325] 1 each PO Q6HR PRN #15 tablet Disposition Discussed With: Patient
[2018-11-15] MEDS ORDERED: ED AFTER HOURS SUPPLY MED SENT HOME PO ONE (22:54)
[2018-11-15] MEDS ORDERED: NORCO 5-325 ONE (23:14)
== END 2018-11-15 23:25 | disposition home or self-care (01) ==
LOC: ED 22:21
DX: L98.499 Non-pressure chronic ulcer of skin of other sites with unspecified severity (principal); F17.210 Nicotine dependence, cigarettes, uncomplicated
CPT/HCPCS: 96372; 99282

== ENCOUNTER 2018-12-06 16:41 | Emergency (ER) ==
[2018-12-06 16:44] VITALS: TEMP 99.1; BMI 50.5
--- NOTE | 2018-12-06 17:21 | ED.PDOC ---
General ED Provider: Dr. MARINA MARIE Chief Complaint: Breast Pain Stated Complaint: Painful ulcers Rt Breast. Onset several 8 weeks ago. Bra not fitting well and rubbing a sore on breast surface. Evaluated initially with Denise KHAN. Originally seen her 11/15/2018, evaluated and sent home on Keflex and norco Time Seen by Physician: 17:10 Mode of Arrival: Walk-In Information Source: Patient Exam Limitations: No limitations Primary Care Provider: RD ROACHLE Nursing and Triage Documentation Reviewed and Agree: Yes Does patient meet sepsis criteria?: No System Inflammatory Response Syndrome: Not Applicable Sepsis Protocol: For patient's 13 years and over: Temp is 96.8 and below OR 101 and greater Pulse >90 BPM Resp >20/minute Acutely Altered Mental Status Are patient's symptoms suggestive of a new infection, such as: -Pneumonia -Skin, Soft Tissue -Endocarditis -UTI -Bone, Joint Infection -Implantable Device -Acute Abdominal Infection -Wound Infection -Meningitis -Blood Stream Catheter Infection -Unknown Skin Complaint Exam - Skin/Soft Tissue Complaint/Exam Onset/Duration: 4-6 wks Symptoms Are: Still present Timing: Constant Initial Severity: Moderate Current Severity: Moderate Location: Rt Breast Character: Reports: Redness (small circular superficial), Painful Aggravating: Reports: None Alleviating: Reports: None Associated Signs and Symptoms: Reports: Tenderness Related Surgical History: Reports: None Recent Exposure to Others w/Similar Symptoms: No Skin Findings: Present: Erythema, Skin lesion, Wet ulceration Differential Diagnoses: Cellulitis, Infection, Other (pressure ulcers) Review of Systems - Review Of Systems Constitutional: Reports: No symptoms Eyes: Reports: No symptoms Ears, Nose, Mouth, Throat: Reports: No symptoms Respiratory: Reports: No symptoms Cardiac: Reports: No symptoms GI: Reports: No symptoms : Reports: No symptoms Musculoskeletal: Reports: No symptoms Skin: Reports: Lesions Neurological: Reports: No symptoms Endocrine: Reports: No symptoms Hematologic/Lymphatic: Reports: No symptoms All Other Systems: Reviewed and Negative Past Medical History - Past Medical History Previously Healthy: Yes Endocrine: Reports: None Cardiovascular: Reports: None Respiratory: Reports: None Hematological: Reports: None Gastrointestinal: Reports: None Genitourinary: Reports: None Neuro/Psych: Reports: Anxiety, Depression Musculoskeletal: Reports: None Cancer: Reports: None Last Menstrual Period: 11/24/18 Other Pertinent Past Medical History: Obesity - Surgical History General Surgical History: Reports: Unknown - Family History Family History: Reports: Unknown - Social History Smoking Status: Current some day smoker, Light tobacco smoker Hx Substance Use: Yes (marijuana for anxiety occasionally) Alcohol Screening: None Physical Exam - Physical Exam Appearance: Ill-appearing Ill-appearing: Mild Pain Distress: Moderate Eyes: CELI, EOMI, Conjunctiva clear ENT: Ears normal, Nose normal, Oropharynx normal Neck: Supple Respiratory: Airway patent, Breath sounds clear, Breath sounds equal, Respirations nonlabored Cardiovascular: RRR, Pulses normal, No rub, No murmur GI/: Soft, Nontender, No masses, Bowel sounds normal, No Organomegaly Musculoskeletal: Normal strength, ROM intact, No edema, No calf tenderness Skin: Warm, Dry, Normal color Neurological: Sensation intact, Motor intact, Reflexes intact, Cranial nerves intact, Alert, Oriented Psychiatric: Affect appropriate, Mood appropriate Critical Care Note - Critical Care Note Total Time (mins): 0 Course - Course Hematology/Chemistry: 12/06/18 16:37 12/06/18 16:37 Orders, Labs, Meds: Lab Review 12/06/18 12/06/18 12/06/18 16:37 16:37 16:37 WBC 14.44 H RBC 4.48 Hgb 12.8 Hct 38.7 MCV 86.4 MCH 28.6 MCHC 33.1 RDW Coeff of [place] 13.6 Plt Count 257 Immature Gran % (Auto) 0.3 Neut % (Auto) 73.2 Lymph % (Auto) 19.8 [place] % (Auto) 5.1 Eos % (Auto) 1.0 Baso % (Auto) 0.6 Immature Gran # (Auto) 0.1 Neut # (Auto) 10.6 H Lymph # (Auto) 2.9 [place] # (Auto) 0.7 Eos # (Auto) 0.2 Baso # (Auto) 0.1 ESR 19 Sodium 139.8 Potassium 3.47 L Chloride 104.4 Carbon Dioxide 27.4 Anion Gap 11.47 BUN 13.5 Creatinine 0.70 Estimated GFR (MDRD) 102.00 BUN/Creatinine Ratio 19.28 Glucose 91.8 Lactic Acid Calcium 8.62 Total Bilirubin 0.30 AST 16.2 ALT 13.9 Alkaline Phosphatase 63.3 Total Creatine Kinase 50.9 Total Protein 6.73 Albumin 3.83 Globulin 2.90 Albumin/Globulin Ratio 1.32 Procalcitonin Serum , Qual 12/06/18 12/06/18 12/06/18 16:37 16:37 16:37 WBC RBC Hgb Hct MCV MCH MCHC RDW Coeff of [place] Plt Count Immature Gran % (Auto) Neut % (Auto) Lymph % (Auto) [place] % (Auto) Eos % (Auto) Baso % (Auto) Immature Gran # (Auto) Neut # (Auto) Lymph # (Auto) [place] # (Auto) Eos # (Auto) Baso # (Auto) ESR Sodium Potassium Chloride Carbon Dioxide Anion Gap BUN Creatinine Estimated GFR (MDRD) BUN/Creatinine Ratio Glucose Lactic Acid 0.63 L Calcium Total Bilirubin AST ALT Alkaline Phosphatase Total Creatine Kinase Total Protein Albumin Globulin Albumin/Globulin Ratio Procalcitonin < 0.05 Serum , Qual Negative Orders Category Date Time Status BLOOD CULTURE (ED ONLY) Stat LAB 12/06/18 17:37 Completed CBC W/ AUTO DIFF Stat LAB 12/06/18 16:37 Completed CMP [COMPREHENSIVE METABOLIC PANEL] Stat LAB 12/06/18 16:37 Completed CPK [CREATINE KINASE] Stat LAB 12/06/18 16:37 Completed CULTURE WOUND [WOUND CULTURE] Stat LAB 12/06/18 17:15 Completed CULTURE WOUND [WOUND CULTURE] Stat LAB 12/06/18 17:15 Completed ESR Stat LAB 12/06/18 16:37 Completed HCG QUALITATIVE [SERUM ] Stat LAB 12/06/18 16:37 Completed LACTIC ACID Stat LAB 12/06/18 16:37 Completed PROCALCITONIN Stat LAB 12/06/18 16:37 Completed Ceftriaxone 1 gm Vial [Rocephin 1 gm Vial] MEDS 12/06/18 19:05 Discontinued 1 gm IM ONCE STA Lidocaine HCl/Pf [Lidocaine HCl 1% Sdv] MEDS 12/06/18 19:20 Discontinued 5 ml SUBCUT ONCE STA CHEST, 2 VIEWS PA & LAT Stat RADS 12/06/18 17:30 Completed Medications Discontinued Medications Generic Name Dose Route Start Last Admin Trade Name Freq PRN Reason Stop Dose Admin Ceftriaxone Sodium 1 gm 12/06/18 19:05 12/06/18 19:30 Rocephin IM 12/06/18 19:06 1 gm ONCE STA Administration Lidocaine HCl 5 ml 12/06/18 19:20 12/06/18 19:29 Lidocaine Hcl 1% Sdv SUBCUT 12/06/18 19:21 5 ml ONCE STA Administration Vital Signs: Temp Pulse Resp BP Pulse Ox 12/06/18 19:25 104 H 133/86 12/06/18 16:42 99.1 F 101 H 20 137/87 98 Departure - Departure Time of Disposition: 19:50 Disposition: HOME SELF-CARE Discharge Problem: Skin ulcer of female breast Instructions: Acute Wound Care (ED), Chronic Wound Care (ED) Condition: Good Pt referred to PMD for follow-up: Yes (See PCP in 1 wk) IPMP verified?: No Additional Instructions: Dressing changes to breast daily Take meds as needed Ibuprofen 600 mg 4 times daily for pain control and NORCO as needed for uncontolled pain SEE YOUR PCP and get referral to Breast specialist / Wound Care Allergies/Adverse Reactions: Allergies loratadine [From Claritin] Adverse Reaction (Verified 12/26/18 23:38) Difficulty Swallowing Disposition Discussed With: Patient
[2018-12-06] MEDS ORDERED: ROCEPHIN 1 GM VIAL IM STA (19:05)
[2018-12-06] MEDS ORDERED: LIDOCAINE HCL 1% SDV SUBCUT STA (19:20)
[2018-12-06 19:26] VITALS: BP 133/86
--- NOTE | 2018-12-06 22:45 | DI ---
EXAM: Chest two views HISTORY: Right-sided chest pain FINDINGS: Normal cardiac and mediastinal contours. Normal pulmonary vasculature. Lungs are clear. No significant abnormality of the bony thorax. IMPRESSION: Chest radiograph within normal limits.
== END 2018-12-06 20:06 | disposition home or self-care (01) ==
LOC: ED 16:41
DX: L98.499 Non-pressure chronic ulcer of skin of other sites with unspecified severity (principal); N64.4 Mastodynia; F17.210 Nicotine dependence, cigarettes, uncomplicated
CPT/HCPCS: 36415; 80053; 82550; 83605; 84145; 84703; 85025; 85651; 87040; 87070; 87186; 96372; 99283

== ENCOUNTER 2018-12-31 | Emergency (ER) | END 2018-12-31 11:35 | disposition home or self-care (01) | CPT/HCPCS: 87070; 99283 ==